=== PATIENT | male | born 1965 | race Two or more races ===

== ENCOUNTER → 2019-09-10 | Emergency (ER) | payer MEDICAID, OTHER ==
[~2019-09-10] VITALS: Ht 167.6 cm; Wt 83.5 kg
[~2019-09-10] MED LIST: LIDOCAINE 2% JELLY 11ml (GLYDO) ONE; TAMSULOSIN HYDROCHLORIDE 0.4 MG CAP PO ONE; cefTRIAXone 1GM/50ML D5W 50 ML IV ONE
[2019-09-10 21:57] LABS: Urine Bacteria NONE SEEN /hpf (None Seen); Urine Blood Negative /uL (Negative); Urine Specific Gravity 1.005 (1.001-1.035); Urine WBC 1 /hpf (0 - 3)
[2019-09-10 22:38] LABS: Basophils # (auto) 0.1 10 ^3/uL (0-0.2); Eosinophils # (auto) 0.3 10 ^3/uL (0-0.8); Eosinophils % (auto) 2.5 % (0.0-7.0); Hematocrit 46.3 % (41.0-53.0); Hemoglobin 15.8 g/dL (13.5-17.5); Lymphocytes # (auto) 3.6 10 ^3/uL (0.4-5.4); Lymphocytes % (auto) 28.8 % (10.0-50.0); Mean Corpuscular Hemoglobin 30.2 pg (28.0-32.0); Mean Corpuscular Volume 88.7 fL (80.0-100.0); Monocytes % (auto) 8.1 % (0.0-12.0); Neutrophils # (auto) 7.4 10 ^3/uL (1.6-8.6); Neutrophils % (auto) 59.6 % (37.0-80.0); Nucleated Red Blood Cells % 0.1 %; Platelet Count (auto) 217 10^3/uL (140-450); Red Blood Cells 5.22 10^6/uL (4.5-5.90); White Blood Cell 12.3 10^3/uL (4.4-10.8)
[2019-09-10 22:55] LABS: INR 1.01 (0.9-1.15); Partial Thromboplastin Time 26.2 sec (23.64-32.05)
[2019-09-10 22:58] LABS: Albumin 3.8 g/dL (3.4-5.0); Amylase 47 U/L (25-115); Anion Gap 7 (5-15); Blood Urea Nitrogen 19 mg/dL (7-18); Carbon Dioxide 24 mmol/L (21-32); Chloride 110 mmol/L (98-107); Glucose 109 mg/dL (74-106); Lipase 105 U/L (73-393); Magnesium 2.5 mg/dL (1.6-2.6); Sodium 141 mmol/L (136-145)
[2019-09-10 23:15] LABS: Alanine Aminotransferase 33 U/L (16-61); Alkaline Phosphatase 87 U/L (45-117); Aspartate Aminotransferase 19 U/L (15-37); Bilirubin, Total 1.1 mg/dL (0.2-1.0); GFR African American 53 mL/min; GFR Non-African American 44 mL/min; Total Protein 8.3 g/dL (6.4-8.2)
[2019-09-11 11:35] VITALS: BP 134/85
== END | disposition home or self-care (01) ==
LOC: ER 20:30
DX: N40.1 Benign prostatic hyperplasia with lower urinary tract symptoms (principal); N13.8 Other obstructive and reflux uropathy; R33.8 Other retention of urine; I12.9 Hypertensive chronic kidney disease with stage 1 through stage 4 chronic kidney disease, or unspecified chronic kidney disease; N18.3 Chronic kidney disease, stage 3 (moderate)
CPT/HCPCS: 36415; 71046; 74176; 80053; 81001; 82150; 83690; 83735; 84484; 85025; 85610; 85730; 96365

== ENCOUNTER 2019-12-19 20:28 | Emergency (ER) | payer MEDICAID ==
[~2019-12-19] VITALS: Ht 167.6 cm; Wt 83.0 kg
[2019-12-19] MEDS ORDERED: cefTRIAXone 1GM/50ML D5W 50 ML IV ONE (21:15)
[2019-12-19 21:44] LABS: Urine Bacteria MANY /hpf (None Seen); Urine Blood 2+ /uL (Negative); Urine Mucus FEW (None Seen); Urine Specific Gravity 1.019 (1.001-1.035); Urine WBC 211 /hpf (0 - 3)
[2019-12-19] MEDS ORDERED: cefTRIAXone SOD 1,000 MG VL IM ONE (22:15)
[2019-12-19 22:20] VITALS: BP 157/94
== END 2019-12-19 22:26 | disposition home or self-care (01) ==
LOC: ER 20:28
DX: N39.0 Urinary tract infection, site not specified (principal); I10 Essential (primary) hypertension
CPT/HCPCS: 81001; 96372; 99283; J0696